=== PATIENT | male | born 2000 | race American Indian/Alaskan Native ===

== ENCOUNTER 2018-01-03 09:42 | Emergency (ER) | payer OTHER ==
[2018-01-03 09:54] VITALS: BP 112/75
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
--- NOTE | 2018-01-03 14:10 | XRay Report ---
RIGHT SHOULDER, 3 VIEWS: HISTORY: Right shoulder pain. Normal bone mineralization. No acute osseous injury or joint pathology is detected. The soft tissues are unremarkable. IMPRESSION: Right shoulder within normal limits.
== END 2018-01-03 14:49 | disposition home or self-care (01) ==
LOC: ED 09:42
DX: S46.911A Strain of unspecified muscle, fascia and tendon at shoulder and upper arm level, right arm, initial encounter (principal); J45.909 Unspecified asthma, uncomplicated; F17.200 Nicotine dependence, unspecified, uncomplicated; W18.30XA Fall on same level, unspecified, initial encounter; Y93.89 Activity, other specified; Y92.89 Other specified places as the place of occurrence of the external cause; Y99.8 Other external cause status
CPT/HCPCS: 99283